=== PATIENT | male | born 1945 | race Caucasian/White ===

== ENCOUNTER 2016-04-29 09:03 | Inpatient (IN) | payer OTHER ==
[2016-04-29] MEDS ORDERED: TYLENOL PO ONE (09:20)
[2016-04-29 09:40] LABS: MANUAL DIFF NEEDED? NO
[2016-04-29 09:41] LABS: BASO% 0.1 % (0.0-0.8); HEMATOCRIT 31.7 % (42.0-52.0); HEMOGLOBIN 10.6 g/dL (14.0-18.0); IMM GRAN# 0.05 X1000 (0.0-0.04); IMM GRAN% 0.3 % (0.0-0.5); LYMPH# 0.85 X1000 (1.2-3.4); LYMPH% 5.4 % (20.5-51.1); MCH 30.5 PG (27-31); MCHC 33.4 g/dL (33-37); MCV 91.4 FL (81-99); MONO# 1.45 X1000 (0.11-0.59); MONO% 9.3 % (1.7-9.3); MPV 8.7 FL (7.4-10.4); NEUT% 84.9 % (42.2-75.2); PLT 243 X1000 (130-400); RBC 3.47 XMIL (4.7-6.1)
[2016-04-29 09:58] LABS: URINE SOURCE CLEAN CATCH
[2016-04-29 10:08] LABS: BILIRUBIN URINE NEGATIVE (NEGATIVE); BLOOD URINE 1+ (NEGATIVE); CLARITY SL. CLOUDY (CLEAR); COLOR YELLOW; GLUCOSE URINE NEGATIVE (NEGATIVE); LEUKOCYTES URINE NEGATIVE (NEGATIVE); NITRITE URINE POSITIVE (NEGATIVE); PROTEIN URINE 2+(100 mg/dL) mg/dL (NEGATIVE); UROBILINOGEN URINE NORMAL
[2016-04-29 10:15] LABS: URINE CULTURE PL NEEDED? YES; URINE EPITHELIAL CELLS <10 /HPF (<10); URINE RBC <10 /HPF (<10); URINE WBC <10 /HPF (<10)
--- NOTE | 2016-04-29 10:21 | PROVIDER DOCUMENTATION ---
HPI-General Adult - General Chief Complaint: Post Op Complaint Stated Complaint: CAROTID ART FLOR 04/26/16/FEVER Time Seen by Provider: 04/29/16 10:16 Source: patient Allergies/Adverse Reactions: Patient Allergies Allergy/AdvReac Type Severity Reaction Status Date / Time Tetracyclines Allergy Severe ANAPHYLAXIS Verified 06/17/12 12:30 Home Medications: Home Medication List Medication Instructions Recorded Confirmed Last Taken Type Aspirin EC 81 mg PO DAILY 06/17/12 04/29/16 Unknown History Folic Acid 1 mg PO DAILY 06/17/12 04/29/16 06/24/12 04:30 History 1 Hydroxychloroquine [Plaquenil] 200 mg PO DAILY 06/17/12 04/29/16 06/24/12 04:30 History 200 Losartan/Hydrochlorothiazide 1 each PO DAILY 06/17/12 04/29/16 06/24/12 04:30 History [Losartan-Hctz 100-25 mg Tab] 1 Metoprolol Succinate 100 mg PO DAILY 06/17/12 04/29/16 06/24/12 04:30 History 100 Rosuvastatin Calcium [Crestor] 5 mg PO DAILY 06/17/12 04/29/16 06/24/12 04:30 History 5 Azathioprine [Imuran] 200 mg PO BID 04/29/16 04/29/16 Unknown History Potassium 595 mg PO DAILY 04/29/16 04/29/16 Unknown History - History of Present Illness -Gen Adult Nature of Presenting Problems: 70 yo M presents to the ER with complaint of fever onset this morning. Had his L carotid artery replaced x4 days ago, took vein out of R ankle to replace. States his L carotid was 80% blocked in two places. Has a hx of RA. Denies cough, vomiting, nasal congestion. States that he did not have a urinary cath placed during or after surgery but was intubated during surgery. Takes Immuran and Plaquenil for his RA. Has rhematoid nodules to elbows and fingers, states has some pain in every joint of his body. Onset/Duration: reports: this morning Associated Symptoms: reports: fever/chills, joint pain. denies: cough, nausea, vomiting Review of Systems - Adult - REVIEW OF SYSTEMS - ADULT Constitutional: reports: chills, fever Eyes: reports: no symptoms reported Ears, Nose, Mouth & Throat: reports: no symptoms reported Cardiovascular: denies: chest pain, palpitations Respiratory: denies: cough, shortness of breath Gastrointestinal: denies: diarrhea, vomiting Genitourinary: denies: dysuria, frequency Musculoskeletal: reports: joint pain, joint swelling Integumentary: reports: no symptoms reported Neurological: reports: no symptoms reported Psychiatric: reports: no symptoms reported Endocrine: reports: no symptoms reported Hematologic/Lymphatic: reports: no symptoms reported Allergic/Immunologic: reports: no symptoms reported All Other Systems: Reviewed and Negative Past History - Adult - PAST MEDICAL HISTORY-ADULT Review of Records: reports: Nursing Assessment Review, Medications Reviewed Cardiovascular: reports: HTN Genitourinary: reports: prostate cancer Musculoskeletal: reports: arthritis (rheumatoid) - PRIOR SURGERIES/PROCEDURES Surgical/Procedure History: reports: recent surgery, cardiac stent (x2) - IMMUNIZATION STATUS Childhood Immunizations: See Nurse Assessment Flu Vaccine: See Nurse Assessment Physical Exam-General - CONSTITUTIONAL General Appearance: appears well, alert, no apparent distress - EYES Eyes: PERRL/EOMI, pink conjunctivae - HEAD, EARS, NOSE, MOUTH & THROAT HENMT: normocephalic/atraumatic, normal ENT inspection - NECK Neck: supple, normal inspection - RESPIRATORY Respiratory: no respiratory distress, no accessory muscle use - CARDIOVASCULAR Cardiovascular: normal peripheral pulses, regular rate, rhythm - GASTROINTESTINAL (ABDOMEN) Abdominal Exam: normal bowel sounds, non tender, soft - MUSCULOSKELETAL Back Exam: no CVA tenderness, no vertebral tenderness Extremity: inflammation, other (rheumatoid nodules to bilat elbows and fingers) Peripheral Pulses: dorsalis-pedis (R): 2+, dorsalis-pedis (L): 2+ - SKIN Integumentary: warm/dry, warm (bilat ankles), other (both surgical incision sites healing well, no signs of infection) - NEUROLOGIC Neurologic: grossly normal, no motor/sensory deficits - PSYCHIATRIC Psych/Mental Status: normal mood/affect, normal thought content, normal thought process, oriented x 3 Progress - PLAN OF CARE/RESULTS Progress/Plan/Lab Results: Vital Signs Temp Pulse Resp BP Pulse Ox 04/29/16 10:53 93 H 16 107/55 97 04/29/16 10:48 92 H 16 094/052 96 04/29/16 10:38 100.6 F H 95 H 20 82/50 95 04/29/16 09:06 100.4 F H 54 L 20 142/79 100 Tetracyclines Allergy (Severe, Verified 06/17/12 12:30) ANAPHYLAXIS Aspirin EC 81 mg PO DAILY 06/17/12 Folic Acid 1 mg PO DAILY 06/17/12 Hydroxychloroquine [Plaquenil] 200 mg PO DAILY 06/17/12 Losartan/Hydrochlorothiazide [Losartan-Hctz 100-25 mg Tab] 1 each PO DAILY 06/17 Metoprolol Succinate 100 mg PO DAILY 06/17/12 Rosuvastatin Calcium [Crestor] 5 mg PO DAILY 06/17/12 Azathioprine [Imuran] 200 mg PO BID 04/29/16 Potassium 595 mg PO DAILY 04/29/16 Laboratory 04/29/16 04/29/16 04/29/16 09:36 09:33 09:33 WBC 15.62 H RBC 3.47 L Hgb 10.6 L Hct 31.7 L MCV 91.4 MCH 30.5 MCHC 33.4 RDW Std Deviation 15.3 H Plt Count 243 MPV 8.7 Immature Gran % (Auto) 0.3 Neut % (Auto) 84.9 H Lymph % (Auto) 5.4 L [place] % (Auto) 9.3 Eos % (Auto) 0.0 Baso % (Auto) 0.1 Immature Gran # (Auto) 0.05 H Neut # (Auto) 13.26 H Lymph # (Auto) 0.85 L [place] # (Auto) 1.45 H Eos # (Auto) 0.00 Baso # (Auto) 0.01 Sodium Potassium Chloride Carbon Dioxide Anion Gap BUN Creatinine Estimated GFR/1.73 m2 BUN/Creatinine Ratio Glucose Calculated Osmolality Calcium Total Bilirubin AST ALT Alkaline Phosphatase Total Protein Albumin Globulin Albumin/Globulin Ratio Plasma Lactate 2.2 Urine Source CLEAN CATCH Urine Color YELLOW Urine Clarity SL. CLOUDY A Urine pH 6.0 Ur Specific [place] 1.020 Urine Protein 2+(100 mg/dL) A Urine Ketones NEGATIVE Urine Blood 1+ A Urine Nitrite POSITIVE A Urine Bilirubin NEGATIVE Urine Urobilinogen NORMAL Urine Microscopic RBC <10 Urine WBC NEGATIVE Urine Microscopic WBC <10 Ur Epithelial Cells <10 Urine Bacteria 1+ Urine Glucose NEGATIVE Influenza A (Rapid) Influenza B (Rapid) 04/29/16 04/29/16 09:33 09:12 WBC RBC Hgb Hct MCV MCH MCHC RDW Std Deviation Plt Count MPV Immature Gran % (Auto) Neut % (Auto) Lymph % (Auto) [place] % (Auto) Eos % (Auto) Baso % (Auto) Immature Gran # (Auto) Neut # (Auto) Lymph # (Auto) [place] # (Auto) Eos # (Auto) Baso # (Auto) Sodium 127 L Potassium 3.5 Chloride 92 L Carbon Dioxide 20 L Anion Gap 16 BUN 24 H Creatinine 1.1 Estimated GFR/1.73 m2 > 60 BUN/Creatinine Ratio 22 Glucose 111 H Calculated Osmolality 260 Calcium 8.8 Total Bilirubin 0.80 AST 21 ALT 12 Alkaline Phosphatase 48 Total Protein 7.3 Albumin 3.4 L Globulin 4.0 Albumin/Globulin Ratio 1.0 Plasma Lactate Urine Source Urine Color Urine Clarity Urine pH Ur Specific [place] Urine Protein Urine Ketones Urine Blood Urine Nitrite Urine Bilirubin Urine Urobilinogen Urine Microscopic RBC Urine WBC Urine Microscopic WBC Ur Epithelial Cells Urine Bacteria Urine Glucose Influenza A (Rapid) NEGATIVE Influenza B (Rapid) NEGATIVE Orders Category Date Time Status Saline Loc NOW Care 04/29/16 09:12 Active CHEST-2 VIEWS [RAD] Stat Exams 04/29/16 09:12 Taken BLOOD CULTURE [BLDCUL] Stat Lab 04/29/16 09:12 Ordered CBC WITH DIFF [HEME] Stat Lab 04/29/16 09:33 Completed COMPREHENSIVE METABOLIC PANEL [CHEM] Stat Lab 04/29/16 09:33 Completed Flu [INFLUENZA SCREEN PL] Stat Lab 04/29/16 09:12 Completed LACTATE, PLASMA [CHEM] Stat Lab 04/29/16 09:[address] W/POSS RFLX CULT [URINALYSIS] Stat Lab 04/29/16 09:36 Completed URINE CULTURE [RM] Routine Lab 04/29/16 10:15 Ordered 0.9% Sodium Chloride Inj [Ns] 1,000 ml Med 04/29/16 10:33 Discontinued .ROUTE As Directed 0.9% Sodium Chloride Inj [Ns] 1,000 ml Med 04/29/16 10:36 Active IV 999 mls/hr Acetaminophen [Tylenol] Med 04/29/16 09:20 Discontinued 650 mg PO NOW ONE Pulse Oximetry Stat Oth 04/29/16 09:12 Active - XRAY 1 XRAY Study: Chest Impression: Abnormal, Discussed w/Radiology - CONSULTS/PCP/HOSPITALIST Notification #1 *Consult/PCP/Hospitalist*: Dr. Roberto Time Discussed: 11:06 Consult Disposition: Admit Departure - Departure Time of Disposition Order: 11:09 DIAGNOSIS: Postoperative fever Disposition: ADMITTED INPATIENT 09 Certified Medical Emergency: Emergent Condition: Stable Attestation - Scribe Verification/Attestation Scribe:: Shannan Beach Acting as Scribe for:: Jean Marie Huerta Scribe documention review:: This chart was documented by a scribe and accurately reflects the service the provider performed and the decisions made by the provider.
[2016-04-29 10:26] LABS: AGAP 16; ALBUMIN 3.4 g/dL (3.5-5.0); ALKALINE PHOSPHATASE 48 U/L (32-122); BUN 24 mg/dL (8-22); CALCIUM 8.8 mg/dL (8.8-10.2); CHLORIDE 92 mmol/L (98-107); COSMO 260; GOT 21 U/L (10-34); GPT 12 U/L (10-44); POTASSIUM 3.5 mmol/L (3.5-5.1); SODIUM 127 mmol/L (136-145); TCO2 20 mmol/L (25-35); TOTAL PROTEIN 7.3 g/dL (6.3-8.3)
[2016-04-29] MEDS ORDERED: NS 2,000 ML ONE (10:33)
[2016-04-29] MEDS ORDERED: NS 1,000 ML IV ONE (10:36)
[2016-04-29] MEDS ORDERED: TYLENOL PO PRN (11:12)
--- NOTE | 2016-04-29 12:17 | Diag Imaging Result Document ---
PROCEDURE NAME: CHEST-2 VIEWS - 04/29/2016 PA AND LATERAL RADIOGRAPH OF THE CHEST: COMPARISON: No prior chest radiograph is available for comparison. FINDINGS: There is bilateral pulmonary fibrosis with a peripheral predominance throughout both lungs. This can also be seen on a previous chest CT from 2014. No definite airspace consolidation is identified. There is no definite pleural fluid collection. Cardiac silhouette is grossly unremarkable. There is an old right rib fracture. IMPRESSION: Pulmonary fibrosis as described. No definite acute pathology by plain radiograph.
[2016-04-29] MEDS: ZOSYN 3.375 GM/NS 50 ML IV SCH ×3 (12:25→22:34)
[2016-04-29] MEDS: NS 1,000 ML IV SCH ×3 (12:28→22:35)
--- NOTE | 2016-04-29 19:10 | HISTORY AND PHYSICAL ---
PRIMARY CARE PHYSICIAN: Dr. Carlos Londono. CHIEF COMPLAINT: "I have been running a fever and I was lightheaded and dizzy." HISTORY OF CURRENT ILLNESS: This is a 70-year-old male who had a left carotid endarterectomy at [facility] with a Dr. Sheriff in April 2016. Had his right ankle vein used as a replacement. Around 7 p.m. last night he noted having a low grade temperature of 99.7 degrees, today around 7 a.m. he states it was 101.4. When he presented to the emergency room it was 100.4. White blood cell count is noted to be 15.62. Sodium is 127, chloride 92. His urinalysis has positive nitrites, 1+ bacteria but negative white blood cells, he was negative for influenza A and B. Incision site looks clean and dry in both places but he is being admitted for further evaluation and treatment. PAST MEDICAL HISTORY: Of hypertension, prostate cancer, rheumatoid arthritis, pulmonary fibrosis. PAST SURGICAL HISTORY: Of a prostatectomy in 2013, carotid stent x2 in 2010 and a left carotid endarterectomy in April of this year. FAMILY HISTORY: His mother has hypertension, stroke in 2009 is now . SOCIAL HISTORY: Currently retired, lives with his . Denies any tobacco or illicit drug use and drinks 2 alcoholic beverages per day. ALLERGIES: Tetracycline. HOME MEDICATIONS: He takes aspirin 81 mg p.o. daily, Imuran 200 mg p.o. b.i.d., folic acid 1 mg p.o. daily, Plaquenil 200 mg p.o. daily, losartan/hydrochlorothiazide 100/25, 25 mg p.o. daily, metoprolol 100 mg p.o. daily, potassium 99 mg p.o. daily, Crestor 5 mg p.o. daily. LABORATORY DATA: Showed a white blood cell count of 15.62, hemoglobin 10.6, hematocrit 31.7, platelets 243,000. Sodium of 127, potassium 3.5, chloride 92, CO2 20, BUN of 24, creatinine 1.1. Plasma lactate was 2.2. Urinalysis showed positive nitrites, negative white blood cells, 1+ bacteria. Influenza A and B were both negative. Chest x-ray showed pulmonary fibrosis but no acute pathology. REVIEW OF SYSTEMS: He was positive for lightheadedness, dizziness, fever. Denied any chest pain, coughing, shortness of breath, nausea, vomiting, diarrhea, constipation. Denies any muscle aches or weakness. PHYSICAL EXAMINATION: VITAL SIGNS: On arrival he had a temperature of a 100.4 degrees with a pulse of 54, respirations 20, blood pressure 142/79, saturating 100% on room air. Approximately one hour and 30 minutes later his blood pressure dropped to 82/50 with a heart rate of 95. Currently he has a heart rate of 99, respirations 20, blood pressure 134/65 saturating 98% on 2 L via nasal cannula. GENERAL: This is a 70-year-old male who is lying in the bed, answers questions appropriately. HEENT: Normocephalic and atraumatic. Pupils are equal, round, reactive to light. Extraocular movements are intact. Oropharynx and nares are clear. NECK: Supple. Incision site is clean and dry. HEART: With regular rate and rhythm. No murmurs, rubs, or gallops. LUNGS: Clear to auscultation bilaterally with equal lung expansion and chest wall movement. ABDOMEN: Soft, nontender, nondistended. Bowel sounds are present x4 quadrants. EXTREMITIES: No clubbing, cyanosis, or edema. NEUROLOGICAL: The cranial nerves 2-12 are grossly intact. ASSESSMENT: 1. Leukocytosis. 2. Questionable urinary tract infection. 3. Fever secondary to urinary tract infection versus any postsurgical infection even though there is no signs or symptoms of any infection that are visible at this time. 4. Hypotension. 5. Hyponatremia. PLAN: He was admitted to the medical unit at [facility]. Placed on a healthy heart diet. Will obtain a urine culture. Blood cultures x2 are pending. He was given a liter bolus of normal saline in the emergency room and now on 175 mL an hour. Continue his home medications. Place on Zosyn 3.375 g IV q.6 and recheck a CBC, BMP in the a.m. Dictated by CRISTIANO Alaniz for Joaquin Roberto MD
[2016-04-29] MEDS: IMURAN PO SCH (22:34)
[2016-04-30] MEDS: NS 1,000 ML IV SCH ×2 (04:50→10:38)
[2016-04-30] MEDS: ZOSYN 3.375 GM/NS 50 ML IV SCH ×2 (04:50→10:38)
[2016-04-30 06:13] LABS: MANUAL DIFF NEEDED? NO
[2016-04-30 06:19] LABS: BASO% 0.1 % (0.0-0.8); EOS# 0.03 X1000 (0.0-0.7); EOS% 0.4 % (0.0-10.0); HEMATOCRIT 28.8 % (42.0-52.0); HEMOGLOBIN 9.5 g/dL (14.0-18.0); IMM GRAN# 0.01 X1000 (0.0-0.04); IMM GRAN% 0.1 % (0.0-0.5); LYMPH# 0.92 X1000 (1.2-3.4); LYMPH% 10.9 % (20.5-51.1); MCH 30.4 PG (27-31); MONO# 1.03 X1000 (0.11-0.59); MONO% 12.2 % (1.7-9.3); MPV 9.6 FL (7.4-10.4); NEUT% 76.3 % (42.2-75.2); PLT 202 X1000 (130-400); RBC 3.13 XMIL (4.7-6.1)
[2016-04-30 06:49] LABS: AGAP 9; BUN 17 mg/dL (8-22); CHLORIDE 104 mmol/L (98-107); COSMO 270; POTASSIUM 3.3 mmol/L (3.5-5.1); SODIUM 134 mmol/L (136-145); TCO2 21 mmol/L (25-35)
[2016-04-30] MEDS: IMURAN PO SCH (08:26)
[2016-04-30] MEDS ORDERED: FOLIC ACID PO SCH (09:00)
[2016-04-30] MEDS ORDERED: PLAQUENIL PO SCH (09:00)
[2016-04-30] MEDS ORDERED: HYDROCHLOROTHIAZIDE PO SCH ×2 (09:00)
[2016-04-30] MEDS ORDERED: LOSARTAN PO SCH (09:00)
[2016-04-30] MEDS ORDERED: ASPIRIN EC PO SCH (09:00)
[2016-04-30] MEDS ORDERED: TOPROL XL PO SCH (09:00)
[2016-04-30] MEDS ORDERED: PATIENT'S OWN MED PO SCH (09:00)
[2016-04-30] MEDS ORDERED: COZAAR PO SCH (09:00)
[2016-04-30] MEDS ORDERED: KLOR-CON PO ONE (10:14)
[2016-04-30] MEDS ORDERED: SOLU-MEDROL IV ONE (10:15)
--- NOTE | 2016-04-30 10:41 | DISCHARGE SUMMARY ---
ADMISSION DATE: 04/29/2016 DISCHARGE DATE: 04/30/2016 DISCHARGE DIAGNOSES: 1. Febrile illness, uncertain etiology. 2. Leukocytosis, resolved. WBC was 15, down to 18. 3. Mild chronic anemia. Hemoglobin and hematocrit are 9 and 28. 4. Hyponatremia, improved. Sodium was 127, currently 134. 5. Hypokalemia. 6. Hypocalcemia. CONSULTATIONS: None. PROCEDURES: None. BRIEF HOSPITAL COURSE: The patient is an 70-year-old male who just recently had endarterectomy on the left. He started having fever was told to come to the ER. Since being in the ER he has not had any more fever. His white count has improved. He was admitted overnight and placed on antibiotics. Certainly it is possible that he had a urinary tract infection although he only has nitrite positive and 1+ blood. He was started on Zosyn prophylactically. He was continued on his other home medications of Imuran, Plaquenil, and Crestor. As noted, he did not have any further fever. He was able to ambulate without any difficulty and therefore he will be discharged home. He is having some difficulty with his rheumatoid arthritis and therefore 1 dose of Solu-Medrol was given. DISPOSITION: The patient will be discharged home on Augmentin 875 twice a day for 7 days. FOLLOWUP: Discussed with the patient that he needs to call his surgeon and follow up this week. He will need to call his primary care physician, Dr. Carlos Londono, to follow up on his cultures. TIME SPENT: Thirty-five minutes were spent in discharge planning and instructions.
[2016-04-30 16:01] VITALS: BP 137/75
[2016-04-30] MEDS ORDERED: CRESTOR PO SCH (21:00)
[2016-05-01] MEDS ORDERED: MULTI-VITAMIN PO SCH (09:00)
== END 2016-04-30 17:27 | disposition home or self-care (01) | DRG 690 ==
LOC: P.ED 09:03 → P.MEDSURG 09:04
PROVIDERS: ATTEND Family Medicine
DX: N39.0 Urinary tract infection, site not specified (principal); E87.1 Hypo-osmolality and hyponatremia; J84.10 Pulmonary fibrosis, unspecified; I10 Essential (primary) hypertension; M06.9 Rheumatoid arthritis, unspecified; E86.0 Dehydration; D64.9 Anemia, unspecified; E87.6 Hypokalemia; E83.51 Hypocalcemia; Z79.899 Other long term (current) drug therapy; Z79.82 Long term (current) use of aspirin; Z82.3 Family history of stroke; Z85.46 Personal history of malignant neoplasm of prostate; Z95.5 Presence of coronary angioplasty implant and graft; Z82.49 Family history of ischemic heart disease and other diseases of the circulatory system; Z98.890 Other specified postprocedural states
CPT/HCPCS: 36415; 71020; 80048; 80053; 81001; 83605; 85025; 87040; 87077; 87088; 87186; 87804; 94761; 96361; 96365; J2543; J2930; J7030; J7500